=== PATIENT | male | born 1955 | race Caucasian/White ===

== ENCOUNTER 2016-07-04 10:23 | Emergency (ER) | payer MEDICAID ==
[~2016-07-04] VITALS: Ht 180.3 cm; Wt 77.2 kg
[~2016-07-04 10:23] MED LIST: ALBU6.7H INH; FENT1PAT77 TD; METH750T2 PO; OXYC20TA42 PO; OXYC5TAB3 PO; TIOT18CA INH; fentanyl patch
[2016-07-04] MEDS ORDERED: ONDANSETRON ODT 4 MG PO ONE (11:30)
[2016-07-04 12:09] LABS: BLOOD UREA NITROGEN 24 mg/dL (7-18)
[2016-07-04] MEDS ORDERED: ONDANSETRON ODT 4 MG ONE (12:27)
[2016-07-04 12:30] VITALS: BP 125/78
[2016-07-04] MEDS ORDERED: HYDROmorphone 1 MG/ML, 1ML IM ONE (13:00)
[2016-07-04] MEDS ORDERED: HYDROmorphone 1 MG/ML, 1ML ONE (13:03)
== END 2016-07-04 13:35 | disposition home or self-care (01) ==
LOC: ED 13:13
DX: K52.9 Noninfective gastroenteritis and colitis, unspecified (principal); E03.9 Hypothyroidism, unspecified; J44.9 Chronic obstructive pulmonary disease, unspecified; Z85.9 Personal history of malignant neoplasm, unspecified
CPT/HCPCS: 36415; 80048; 82040; 85025; 96372; 99284; J1170; Q0162

== ENCOUNTER 2016-08-04 14:38 | Emergency (ER) | payer MEDICAID ==
[~2016-08-04] VITALS: Ht 180.3 cm; Wt 73.0 kg
[2016-08-04 14:42] VITALS: BP 119/75
[2016-08-04] MEDS ORDERED: HYDROmorphone 1 MG/ML, 1ML IM ONE (15:30)
[2016-08-04] MEDS ORDERED: HYDROmorphone 1 MG/ML, 1ML ONE (15:50)
== END 2016-08-04 16:19 | disposition home or self-care (01) ==
LOC: ED 16:00
DX: G89.29 Other chronic pain (principal); M54.2 Cervicalgia; E07.9 Disorder of thyroid, unspecified; J43.9 Emphysema, unspecified; F17.200 Nicotine dependence, unspecified, uncomplicated
CPT/HCPCS: 96372; 99283; J1170

== ENCOUNTER 2016-08-22 09:46 | Emergency (ER) | payer MEDICAID ==
[~2016-08-22] VITALS: Ht 180.3 cm; Wt 70.9 kg
[2016-08-22] MEDS ORDERED: ONDANSETRON ODT 4 MG ONE (11:45)
[2016-08-22] MEDS ORDERED: HYDROmorphone 1 MG/ML, 1ML ONE (11:45)
[2016-08-22] MEDS ORDERED: ONDANSETRON ODT 4 MG PO ONE (12:00)
[2016-08-22] MEDS ORDERED: HYDROmorphone 1 MG/ML, 1ML IM ONE (12:00)
[2016-08-22 12:57] VITALS: BP 149/87
== END 2016-08-22 13:03 | disposition home or self-care (01) ==
LOC: ED 12:57
DX: G89.29 Other chronic pain (principal); M54.2 Cervicalgia; J44.9 Chronic obstructive pulmonary disease, unspecified; Z86.19 Personal history of other infectious and parasitic diseases; Z85.9 Personal history of malignant neoplasm, unspecified; F17.210 Nicotine dependence, cigarettes, uncomplicated
CPT/HCPCS: 96372; 99283; J1170; Q0162

== ENCOUNTER → 2016-10-11 | Outpatient (CLI) | payer MEDICAID ==
[~2016-10-11] MED LIST changes: +OMNIPAQUE 350 MG/ML, 150 ML BOTTLE ONE
== END | disposition home or self-care (01) ==
LOC: CFH 11:11
PROVIDERS: ATTEND Specialist
DX: M47.894 Other spondylosis, thoracic region (principal); M50.30 Other cervical disc degeneration, unspecified cervical region; R59.0 Localized enlarged lymph nodes; Q78.2 Osteopetrosis; C41.9 Malignant neoplasm of bone and articular cartilage, unspecified; Z90.81 Acquired absence of spleen
CPT/HCPCS: 70491; 71260; 74177; 82565; Q9967

== ENCOUNTER 2016-11-10 09:01 | Day surgery (SDC) | payer MEDICAID ==
[~2016-11-10] VITALS: Ht 180.3 cm; Wt 71.8 kg
[~2016-11-10 09:01] MED LIST changes: -OMNIPAQUE 350 MG/ML, 150 ML BOTTLE ONE
[2016-11-10 09:58] VITALS: BP 119/79
[2016-11-10] MEDS ORDERED: SODIUM CHLORIDE 0.9% 1,000 ML IV SCH (10:30)
[2016-11-10] MEDS ORDERED: MIDAZOLAM 1 MG/ML, 5ML ONE (10:34)
[2016-11-10] MEDS ORDERED: FENTANYL PF 100 MCG/2ML ONE (10:34)
[2016-11-10] MEDS ORDERED: LIDOCAINE 2%, 20ML ONE (10:35)
[2016-11-10] MEDS ORDERED: NALOXONE 1 MG/ML, 2ML ONE (10:35)
[2016-11-10] MEDS ORDERED: FLUMAZENIL 0.1 MG/1 ML, 5ML ONE (10:35)
[2016-11-10 11:03] LABS: HEMOGLOBIN 13.6 g/dL (13.7-18.0); WHITE BLOOD COUNT 5.9 x10^3/uL (3.4-10)
== END 2016-11-10 14:50 ==
LOC: OUT 09:01
PROVIDERS: ATTEND Specialist
DX: C85.90 Non-Hodgkin lymphoma, unspecified, unspecified site (principal); I10 Essential (primary) hypertension; J44.9 Chronic obstructive pulmonary disease, unspecified; F17.200 Nicotine dependence, unspecified, uncomplicated; Z72.89 Other problems related to lifestyle; Z91.09 Other allergy status, other than to drugs and biological substances; Z86.19 Personal history of other infectious and parasitic diseases; Z98.890 Other specified postprocedural states
CPT/HCPCS: 36415; 38221; 77012; 85025; 85097; 88237; 88264; 88280; 88305; 88311; 88313; 99156; G0364; J2250; J3010; J3490; 88341; 88342; 99157; G0461; J2310

== ENCOUNTER → 2017-03-11 | Outpatient (CLI) | payer MEDICAID | LOC: PETCFH 08:16 | PROVIDERS: ATTEND Specialist | DX: M85.88 Other specified disorders of bone density and structure, other site (principal); J84.10 Pulmonary fibrosis, unspecified | CPT/HCPCS: 78815; A9552 ==

== ENCOUNTER 2017-06-03 10:11 | Day surgery (SDC) | payer MEDICAID ==
[~2017-06-03] VITALS: Ht 180.3 cm; Wt 62.7 kg
[~2017-06-03 10:11] MED LIST changes: +BUPIVACAINE/PF 0.5% ONE; +EPINEPHRINE 1 MG/ML, 1ML ONE
[2017-06-03 10:55] VITALS: BP 126/89
[2017-06-03] MEDS ORDERED: FENT1PAT77 TD (11:06)
[2017-06-03] MEDS ORDERED: BUTA1CAP59 PO (11:06)
[2017-06-03] MEDS ORDERED: OXYC10TA6 PO (11:06)
[2017-06-03] MEDS ORDERED: GABA600T2 PO (11:06)
[2017-06-03] MEDS ORDERED: CODE1CAP9 PO (11:06)
[2017-06-03 11:40] LABS: CULTURE INDICATED? YES; MICROSCOPIC INDICATED
[2017-06-03] MEDS ORDERED: ALBUTEROL/IPRATROPIUM 2.5MG/0.5MG, 3 ML NEB STA (11:46)
[2017-06-03] MEDS ORDERED: FENTANYL 75 MCG PATCH TD ONE (12:00)
[2017-06-03 12:17] LABS: ANION GAP 5 mmol/L (5-15); CALCIUM 8.6 mg/dL (8.5-10.1); CHLORIDE 108 mmol/L (98-107); CREATININE 1.04 mg/dL (0.7-1.3)
[2017-06-03] MEDS ORDERED: DEXAMETHASONE 4 MG/ML, 1ML ONE (12:18)
[2017-06-03] MEDS ORDERED: CEFAZOLIN 1,000 MG ONE (12:18)
[2017-06-03] MEDS ORDERED: PROPOFOL 10 MG/ML, 20ML ONE ×2 (12:18)
[2017-06-03] MEDS ORDERED: ONDANSETRON 2MG/ML, 2ML ONE (12:18)
[2017-06-03] MEDS ORDERED: LIDOCAINE-MPF 2% ,5ML ONE (12:18)
[2017-06-03] MEDS ORDERED: FENTANYL PF 100 MCG/2ML ONE (12:20)
[2017-06-03] MEDS ORDERED: MIDAZOLAM 1 MG/ML, 2ML ONE (12:22)
[2017-06-03] MEDS ORDERED: MEPERIDINE/PF 25MG/0.5ML IVPush PRN (13:00)
[2017-06-03] MEDS ORDERED: OXYcodone 5 MG/5 ML ORAL.SOL UDC PO PRN (13:00)
[2017-06-03] MEDS ORDERED: HYDROcodone/APAP 7.5-325MG/15ML UDC PO PRN (13:00)
[2017-06-03] MEDS ORDERED: FENTANYL PF 100 MCG/2ML IV PRN (13:00)
[2017-06-03] MEDS ORDERED: KETOROLAC 30 MG/1 ML IV PRN ×2 (13:00)
[2017-06-03] MEDS ORDERED: HYDROmorphone 1 MG/ML, 1ML IV PRN (13:00)
[2017-06-03] MEDS ORDERED: ACETAMINOPHEN 325 MG TABLET PO PRN (13:00)
[2017-06-03] MEDS ORDERED: morphine SULFATE 10 MG/ML, 1ML IV PRN (13:00)
== END 2017-06-03 16:15 | disposition home or self-care (01) ==
LOC: OUT 10:11 → MERGE 14:00 → OUT 16:15
PROVIDERS: ATTEND Orthopaedic Surgery Orthopaedic Surgery of the Spine
DX: M89.9 Disorder of bone, unspecified (principal); J45.909 Unspecified asthma, uncomplicated; Z88.8 Allergy status to other drugs, medicaments and biological substances
CPT/HCPCS: 20240; 36415; 80048; 81001; 87086; 88305; 88307; 88311; 93005; 94640; J0171; J0690; J1100; J1885; J2250; J2405; J2704; J3010; J3490; J7620

== ENCOUNTER 2017-10-19 10:16 | Emergency (ER) | payer MEDICAID ==
[~2017-10-19 10:16] MED LIST changes: -BUPIVACAINE/PF 0.5% ONE; +BUTA1CAP59 PO; +CODE1CAP9 PO; -EPINEPHRINE 1 MG/ML, 1ML ONE; +GABA600T2 PO; +OXYC10TA6 PO
== END 2017-10-19 10:50 | disposition left against medical advice (07) ==
LOC: ED 10:45
DX: M25.512 Pain in left shoulder (principal); M25.511 Pain in right shoulder; R51 Headache; Z53.21 Procedure and treatment not carried out due to patient leaving prior to being seen by health care provider

== ENCOUNTER → 2020-05-19 | Outpatient (CLI) | payer MEDICARE, MEDICAID ==
[~2020-05-19] MED LIST changes: -ALBU6.7H INH; +ALBU6.7H8 INH; -GABA600T2 PO; +GABA600T7 PO; +METH-640 PO; -METH750T2 PO; -OXYC5TAB3 PO; +OXYC5TAB98 PO
== END | disposition home or self-care (01) ==
LOC: RAD 08:42
PROVIDERS: ATTEND Internal Medicine Gastroenterology
DX: B18.2 Chronic viral hepatitis C (principal)
CPT/HCPCS: 76700

== ENCOUNTER → 2020-12-02 | Outpatient (CLI) | payer MEDICARE, MEDICAID | END | disposition home or self-care (01) | LOC: RAD 08:54 | PROVIDERS: ATTEND Internal Medicine Gastroenterology | DX: N28.1 Cyst of kidney, acquired (principal); B18.2 Chronic viral hepatitis C | CPT/HCPCS: 76700 ==